=== PATIENT | male | born 1960 | race Caucasian/White ===

== ENCOUNTER 2018-05-15 11:30 | Outpatient (REF) | payer MEDICARE, MEDICAID, SELFPAY ==
[2018-05-15 20:13] LABS: ALT 18 U/L (12-78); Anion Gap 9.1 mmol/L (3-11); BUN 9 mg/dL (7-18); CO2 28.9 mmol/L (21.0-32.0); CREATININE 1.02 mg/dL (0.70-1.30); Calcium 9.4 mg/dL (8.5-10.1); Chloride 98 mmol/L (98-107); Glucose 104 mg/dL (70-100); LDL CHOLESTEROL 180 mg/dL (<100); Potassium 4.5 mmol/L (3.5-5.1); Sodium 136 mmol/L (136-145)
[2018-05-15 20:40] LABS: ESR 19 MM/HR (1-20)
[2018-05-19 10:37] LABS: Cyclic Citrullinated Peptide <2.5 U/mL (<5.0)
[2018-05-19 11:00] LABS: Rheumatoid Factor <8 IU/mL (<12.5)
[2018-05-19 11:35] LABS: Hepatitis C Ab w Rflx HCV PCR Negative (NEGAT)
== END 2018-05-15 11:50 ==
LOC: NCHCN 11:30
PROVIDERS: PCP Internal Medicine; Visit Provider Internal Medicine
DX: M18.11 Unilateral primary osteoarthritis of first carpometacarpal joint, right hand (principal); I10 Essential (primary) hypertension; S22.009D Unspecified fracture of unspecified thoracic vertebra, subsequent encounter for fracture with routine healing; Z13.6 Encounter for screening for cardiovascular disorders; Z11.59 Encounter for screening for other viral diseases
CPT/HCPCS: 80048; 83721; 85652; 86200; 86803; 84460; 86140; 86431

== ENCOUNTER 2018-12-03 18:01 | Outpatient (REF) | payer MEDICARE, MEDICAID, SELFPAY ==
[2018-12-03 21:23] LABS: C-Reactive Protein 0.17 mg/dL (0.0-0.3)
[2018-12-03 22:00] LABS: ESR 13 MM/HR (1-20)
[2018-12-08 10:59] LABS: Buprenorphine Negative; Norbuprenorphine Negative
== END 2018-12-03 18:21 ==
LOC: NCHCN 18:01
PROVIDERS: PCP Internal Medicine; Visit Provider Internal Medicine
DX: F11.20 Opioid dependence, uncomplicated (principal); M71.30 Other bursal cyst, unspecified site; M18.11 Unilateral primary osteoarthritis of first carpometacarpal joint, right hand; S22.009D Unspecified fracture of unspecified thoracic vertebra, subsequent encounter for fracture with routine healing
CPT/HCPCS: 80307; 85652; 86140

== ENCOUNTER 2019-05-11 16:49 | Outpatient (REF) | payer MEDICARE, MEDICAID, SELFPAY ==
[2019-05-19 12:41] LABS: Buprenorphine Negative; Norbuprenorphine Negative
== END 2019-05-11 17:09 ==
LOC: NCHCN 16:49
PROVIDERS: PCP Internal Medicine; Visit Provider Internal Medicine
DX: G89.29 Other chronic pain (principal); Z79.899 Other long term (current) drug therapy
CPT/HCPCS: 80307

== ENCOUNTER 2019-12-14 18:31 | Outpatient (REF) | payer MEDICARE, MEDICAID, SELFPAY ==
[2019-12-14 19:48] LABS: HGB 15.2 g/dL (13.5-17.5); Mean Corp. HGB Concentration 33.8 g/dL (32.0-36.0); Mean Corpuscular Hemoglobin 31.5 pg (27.0-33.0); Mean Corpuscular Volume 93.2 fL (80-95); Mean Platelet Volume 11.6 fL (8.0-11.0); Platelet Count 245 x1000/uL (130-400); RBC 4.83 m/cumm (4.50-6.00); RBC Distribution Width 13.4 % (11.8-14.1)
[2019-12-14 20:26] LABS: ESR 15 mm/hr (1-20)
[2019-12-14 20:42] LABS: ALT 20 U/L (16-63); AST 25 U/L (15-37); Albumin 4.1 g/dL (3.4-5.0); Alkaline Phosphatase 103 U/L (46-116); Anion Gap 8.4 mmol/L (3-11); BUN 8 mg/dL (7-18); Bilirubin, Total 0.6 mg/dL (0.2-1.0); CO2 30.6 mmol/L (21.0-32.0); CREATININE 1.03 mg/dL (0.70-1.30); Calcium 9.6 mg/dL (8.5-10.1); Chloride 101 mmol/L (98-107); Glucose 95 mg/dL (74-106); Potassium 3.9 mmol/L (3.5-5.1); Sodium 140 mmol/L (136-145); TSH 1.61 uIU/mL (0.36-3.74); Total Protein 7.3 g/dL (6.4-8.2); Vitamin B12 393 pg/mL (193-986)
[2019-12-16 13:52] LABS: Albumin 59.7 % (55.8-66.1); Total Protein 7.2 g/dL (6.3-8.2)
== END 2019-12-14 18:51 ==
LOC: NCHCN 18:31
PROVIDERS: PCP Internal Medicine; Visit Provider Internal Medicine
DX: G60.9 Hereditary and idiopathic neuropathy, unspecified (principal); F41.8 Other specified anxiety disorders; R29.898 Other symptoms and signs involving the musculoskeletal system
CPT/HCPCS: 80053; 85027; 85652; 82607; 84165; 84443

== ENCOUNTER 2020-06-17 13:14 | Outpatient (REF) | payer MEDICARE, MEDICAID, SELFPAY ==
[2020-06-28 12:14] LABS: Buprenorphine Negative
== END 2020-06-17 13:34 ==
LOC: NCHCN 13:14
PROVIDERS: PCP Internal Medicine; Visit Provider Internal Medicine
DX: M10.9 Gout, unspecified (principal); G60.9 Hereditary and idiopathic neuropathy, unspecified; Z79.899 Other long term (current) drug therapy; Z51.81 Encounter for therapeutic drug level monitoring
CPT/HCPCS: 80307

== ENCOUNTER → 2020-08-22 13:02 | Outpatient (BNVA) | payer MEDICARE, MEDICAID, SELFPAY | PROVIDERS: PCP Internal Medicine; Referring Provider Internal Medicine; Visit Provider Psychiatry & Neurology Neurology | DX: M79.604 Pain in right leg (principal); M79.605 Pain in left leg; R29.898 Other symptoms and signs involving the musculoskeletal system; R26.89 Other abnormalities of gait and mobility | CPT/HCPCS: 95885; 95908; 99205 ==

== ENCOUNTER 2021-05-24 15:20 | Outpatient (REF) | payer MEDICARE, MEDICAID, SELFPAY ==
[2021-05-24 17:31] LABS: Anion Gap 9.3 mmol/L (3-11); BUN 10 mg/dL (7-18); CO2 27.7 mmol/L (21.0-32.0); Calcium 9.1 mg/dL (8.5-10.1); Chloride 101 mmol/L (98-107); Glucose 90 mg/dL (74-106); Potassium 4.7 mmol/L (3.5-5.1); Sodium 138 mmol/L (136-145)
== END 2021-05-24 15:21 | disposition home or self-care (01) ==
LOC: NCHCN 15:20
PROVIDERS: PCP Internal Medicine; Visit Provider Internal Medicine
DX: E87.8 Other disorders of electrolyte and fluid balance, not elsewhere classified (principal); R55 Syncope and collapse; Z79.52 Long term (current) use of systemic steroids
CPT/HCPCS: 80048; 83735

== ENCOUNTER 2021-09-11 16:34 | Outpatient (REF) | payer MEDICARE, MEDICAID, SELFPAY ==
[2021-09-11 20:21] LABS: Magnesium 0.9 mg/dL (1.8-2.4); Vitamin B12 429 pg/mL (193-986)
[2021-09-11 20:54] LABS: C-Reactive Protein < 0.05 mg/dL (0.0-0.3)
[2021-09-11 22:38] LABS: Anion Gap 11.4 mmol/L (3-11); BUN 9 mg/dL (7-18); CO2 28.6 mmol/L (21.0-32.0); CREATININE 0.9 mg/dL (0.70-1.30); Calcium 8.7 mg/dL (8.5-10.1); Chloride 102 mmol/L (98-107); Glucose 72 mg/dL (74-106); Potassium 3.9 mmol/L (3.5-5.1); Sodium 142 mmol/L (136-145)
== END 2021-09-11 16:35 | disposition home or self-care (01) ==
LOC: NCHCN 16:34
PROVIDERS: PCP Internal Medicine; Visit Provider Internal Medicine
DX: R53.83 Other fatigue (principal)
CPT/HCPCS: 80048; 82607; 83735; 84443; 86140

== ENCOUNTER 2022-01-17 13:07 | Outpatient (REF) | payer MEDICARE, MEDICAID, SELFPAY ==
[2022-01-17 20:28] LABS: HCT 36.6 % (40.0-50.0); HGB 11.4 g/dL (13.5-17.5); MCH 26.3 pg (27.0-33.0); MCHC 31.1 % (32.0-36.0); MCV 84 fL (80-95); MPV 12.2 fL (8.0-11.0); Platelet Count 375 10^3/uL (130-400); RBC 4.34 10^6/uL (4.36-5.78); RDW-SD 46.1 fL; WBC 12.25 10^3/uL (4.4-10.8)
[2022-01-17 20:42] LABS: ALT 31 U/L (16-63); AST 37 U/L (15-37); Albumin 2.8 g/dL (3.4-5.0); Alkaline Phosphatase 158 U/L (46-116); Anion Gap 8.6 mmol/L (3-11); BUN 30 mg/dL (7-18); Bilirubin, Total 0.3 mg/dL (0.2-1.0); CO2 32.4 mmol/L (21.0-32.0); CREATININE 1.1 mg/dL (0.70-1.30); Calcium 9.7 mg/dL (8.5-10.1); Chloride 95 mmol/L (98-107); Glucose 83 mg/dL (74-106); Magnesium 1.8 mg/dL (1.8-2.4); Potassium 4.3 mmol/L (3.5-5.1); Sodium 136 mmol/L (136-145); Total Protein 8.8 g/dL (6.4-8.2)
== END 2022-01-17 13:08 | disposition home or self-care (01) ==
LOC: NCHCN 13:07
PROVIDERS: PCP Internal Medicine; Visit Provider Internal Medicine
DX: J18.9 Pneumonia, unspecified organism (principal); E46 Unspecified protein-calorie malnutrition; A41.9 Sepsis, unspecified organism
CPT/HCPCS: 80053; 85027; 83735

== ENCOUNTER → 2022-02-19 08:47 | Outpatient (BNVA) | payer MEDICARE, MEDICAID, SELFPAY | PROVIDERS: PCP Internal Medicine; Referring Provider Internal Medicine; Visit Provider Internal Medicine Cardiovascular Disease | DX: I48.0 Paroxysmal atrial fibrillation (principal); M06.9 Rheumatoid arthritis, unspecified; J18.9 Pneumonia, unspecified organism | CPT/HCPCS: 99203; 99214 ==

== ENCOUNTER 2022-02-28 09:58 | Emergency (ER) | payer MEDICARE, MEDICAID, SELFPAY ==
[2022-02-28] VITALS (10 sets, daily range): BP systolic 124–147; BP diastolic 81–94; PULSE 73–88; RESP 16–18; TEMP 37–37.1; O2SAT 96–98
--- NOTE | 2022-02-28 10:45 | DI.RAD_ITS ---
Exam(s) XR ABDOMEN FLAT PLATE EXAM: XR ABDOMEN FLAT PLATE CLINICAL HISTORY: abd pain with tube feeding. TECHNIQUE: 2D digital imaging was performed. COMPARISON: No exams were available for comparison FINDINGS: Two views There is infiltrate in the right lower lung included in the field of view of this abdominal study. T he visualized left lung bases clear. On this supine view there are air-filled and some distended bowel loops, predominantly small bowel bu t also appears to be some air in what is probably the transverse colon. Vertically orientated catheter device questionable position relative the stomach. IMPRESSION: DATA REPOSITORY: RADIATION DOSE DELIVERED:
[2022-02-28 11:12] LABS: Abs Immature Grans 0.03 10^3/uL (0.0-0.06); Absolute Eosinophil Count 0.07 10^3/uL (0.0-0.7); Absolute Lymphocyte Count 1.95 10^3/uL (1.2-3.4); Absolute Monocyte Count 0.64 10^3/uL (0.1-0.8); Absolute Neutrophil Count 6.85 10^3/uL (1.2-6.7); Eosinophils % 0.7; HCT 43.9 % (40.0-50.0); HGB 13.8 g/dL (13.5-17.5); Immature Grans % 0.3; Lymphocytes % 20.2; MCH 25.7 pg (27.0-33.0); MCHC 31.4 % (32.0-36.0); MCV 82 fL (80-95); Monocytes % 6.6; Neutrophils % 71.2; RBC 5.36 10^6/uL (4.36-5.78); RDW 17.1 % (11.8-14.1); RDW-SD 50.1 fL; WBC 9.64 10^3/uL (4.4-10.8)
[2022-02-28 11:26] LABS: ALT 78 U/L (16-63); AST 77 U/L (15-37); Albumin 3.6 g/dL (3.4-5.0); Alkaline Phosphatase 134 U/L (46-116); Anion Gap 6.6 mmol/L (3-11); BUN 17 mg/dL (7-18); Bilirubin, Total 0.6 mg/dL (0.2-1.0); CO2 28.4 mmol/L (21.0-32.0); CREATININE 1.1 mg/dL (0.70-1.30); Calcium 9.7 mg/dL (8.5-10.1); Chloride 96 mmol/L (98-107); Estimated GFR 74.96 (mL/min/1.73m2); Glucose 95 mg/dL (74-106); Lipase 84 U/L (73-393); Potassium 4.1 mmol/L (3.5-5.1); Sodium 131 mmol/L (136-145); Total Protein 8.8 g/dL (6.4-8.2)
[2022-02-28] MEDS: Normal Saline 500 ML IV (11:50)
[2022-02-28 11:54] LABS: Bilirubin Negative (Negative); Blood Negative (Negative); Clarity Clear (Clear); Glucose Negative (Negative); Ketones Negative (Negative); Leukocyte Esterase Negative (Negative); Nitrite Negative (Negative); Specific Gravity 1.015 (1.005-1.025); Urobilinogen 0.2 EU/dL (Up TO 0.2)
--- NOTE | 2022-02-28 13:27 | ED.GENADUL_ITS ---
Discharge Plan Disposition Patient Disposition: HOME Condition: Stable Discharge Details Clinical Impression: Abdominal pain, Infiltrate of lower lobe of right lung present on imaging study Primary Care Provider: Ken Payan ED Provider: Tam Barajas Home Meds and New Rx's Prescriptions: Continued hydrocodone-acetaminophen 7.5-325 mg tablet 1 tab PO Q8H atorvastatin 20 mg tablet 20 mg PO QHS fluoxetine 40 mg capsule 40 mg PO DAILY amiodarone 400 mg tablet 400 mg PO DAILY furosemide [Lasix] 40 mg tablet 40 mg PO DAILY pantoprazole [Protonix] [address] for susp in packet 40 mg PO DAILY No Action fluoxetine 20 mg capsule 60 mg PO DAILY Discharge Instructions Instructions: Abdominal Pain (ED) Additional Instructions: Your laboratory work-up and diagnostic imaging today was reassuring. Incidentally noted is a infiltrate in your right lower lung. I suspect this is as result of recent pulmonary infection. Please be sure to discuss this with your primary care physician in follow-up. I discussed your recent swallow study with your speech pathologist who recommends advancing to thick liquids and soft mechanical solids as tolerated. Please follow-up with gastroenterology at [facility] for general surgery at [facility] regarding her G-tube. Please contact your primary care physician to arrange follow-up. Return to the ER immediately for any worsening or new concerning symptoms. Referrals: [facility] [Provider Group] Ken Payan [Primary Care Provider] - Discharge Data Discharge Date/Time-TO BE ENTERED AT DEPARTURE: 02/28/22 16:21 Medical Decision Making 1330 --62-year-old male with multiple medical problems, here with abdominal pain after any injection into the G-tube over the past 2 weeks. G-tube is been present for the past 2 months after he was hospitalized for aspiration pneumonia with respiratory failure. Patient does have tenderness in his upper abdomen. No peritoneal findings. Concern for potential G-tube dislodgment versus other acute surgical process. CT currently unavailable. I called and spoke with on-call general surgeon, Dr. Fuller, she recommended injecting Gastroview and obtaining plain film x-ray to confirm appropriate placement of G-tube. -- Of note, patient did have swallow evaluation this week. I called and spoke with Suzy the speech pathologist who performed the study and notes patient performed well in recommends advancing to mechanical soft solids. -- Abdominal x-ray with Gastroview was interpreted by radiology: After 30 cc Gastrografin was injected via the indwelling gastrostomy tube 3 views were obtained including supine, upright, and left side down-right side up decubitus views. These views reveal that the gastrostomy tube is in satisfactory position in the distal body of the stomach with no evidence of extravasation of contrast into the surrounding tissue.? These images also reveal that the stomach is not distended.? There is also no free intraperitoneal air evident. Incidentally noted is significant infiltrate in the right lung base, not associated with an obvious pleural effusion.? The opposite-left lung base is clear. --patient was reassessed and has remained stable. Results discussed with the patient. I advised advancing diet and starting p.o.'s and to follow-up with surgery or GI regarding his G-tube. Lab Data Lab results reviewed: Yes I reviewed the patient's lab results. Labs: Laboratory Tests Range/Units 02/28/22 02/28/22 02/28/22 10:53 10:53 10:53 WBC (4.4-10.8) 10^3/uL 9.64 RBC (4.36-5.78) 10^6/uL 5.36 Hgb (13.5-17.5) g/dL 13.8 Hct (40.0-50.0) % 43.9 MCV (80-95) fL 82 MCH (27.0-33.0) pg 25.7 L MCHC (32.0-36.0) % 31.4 L RDW (11.8-14.1) % 17.1 H Plt Count (130-400) 10^3/uL MPV (8.0-11.0) fL Immature Gran % 0.3 Neutrophils % 71.2 Lymphocytes % 20.2 Monocytes % 6.6 Eosinophils % 0.7 Basophils % 1.0 Nucleated RBC % (0.0-0.3) % 0.0 Absolute Neutrophils (1.2-6.7) 10^3/uL 6.85 H Absolute Lymphocytes (1.2-3.4) 10^3/uL 1.95 Absolute Monocytes (0.1-0.8) 10^3/uL 0.64 Absolute Eosinophils (0.0-0.7) 10^3/uL 0.07 Absolute Basophils (0.0-0.2) 10^3/uL 0.10 Sodium (136-145) mmol/L 131 L Potassium (3.5-5.1) mmol/L 4.1 Chloride (98-107) mmol/L 96 L Carbon Dioxide (21.0-32.0) mmol/L 28.4 Anion Gap (3-11) mmol/L 6.6 BUN (7-18) mg/dL 17 Creatinine (0.70-1.30) mg/dL 1.1 Est GFR (CKD-EPI 2020) (mL/min/1.73m2) 74.96 Glucose (74-106) mg/dL 95 Calcium (8.5-10.1) mg/dL 9.7 Total Bilirubin (0.2-1.0) mg/dL 0.6 AST (15-37) U/L 77 H ALT (16-63) U/L 78 H Alkaline Phosphatase (46-116) U/L 134 H Total Protein (6.4-8.2) g/dL 8.8 H Albumin (3.4-5.0) g/dL 3.6 Lipase Cancelled 84 Urine Color (Yellow) Urine Clarity (Clear) Urine pH (5-8) Ur Specific [place] (1.005-1.025) Urine Protein (Negative) mg/dL Urine Ketones (Negative) mg/dL Urine Blood (Negative) Urine Nitrite (Negative) Urine Bilirubin (Negative) Urine Urobilinogen (Up TO 0.2) EU/dL Ur Leukocyte Esterase (Negative) Urine Glucose (Negative) mg/dL Range/Units 02/28/22 11:22 WBC (4.4-10.8) 10^3/uL RBC (4.36-5.78) 10^6/uL Hgb (13.5-17.5) g/dL Hct (40.0-50.0) % MCV (80-95) fL MCH (27.0-33.0) pg MCHC (32.0-36.0) % RDW (11.8-14.1) % Plt Count (130-400) 10^3/uL MPV (8.0-11.0) fL Immature Gran % Neutrophils % Lymphocytes % Monocytes % Eosinophils % Basophils % Nucleated RBC % (0.0-0.3) % Absolute Neutrophils (1.2-6.7) 10^3/uL Absolute Lymphocytes (1.2-3.4) 10^3/uL Absolute Monocytes (0.1-0.8) 10^3/uL Absolute Eosinophils (0.0-0.7) 10^3/uL Absolute Basophils (0.0-0.2) 10^3/uL Sodium (136-145) mmol/L Potassium (3.5-5.1) mmol/L Chloride (98-107) mmol/L Carbon Dioxide (21.0-32.0) mmol/L Anion Gap (3-11) mmol/L BUN (7-18) mg/dL Creatinine (0.70-1.30) mg/dL Est GFR (CKD-EPI 2020) (mL/min/1.73m2) Glucose (74-106) mg/dL Calcium (8.5-10.1) mg/dL Total Bilirubin (0.2-1.0) mg/dL AST (15-37) U/L ALT (16-63) U/L Alkaline Phosphatase (46-116) U/L Total Protein (6.4-8.2) g/dL Albumin (3.4-5.0) g/dL Lipase Urine Color (Yellow) Yellow Urine Clarity (Clear) Clear Urine pH (5-8) 7.0 Ur Specific [place] (1.005-1.025) 1.015 Urine Protein (Negative) mg/dL Negative Urine Ketones (Negative) mg/dL Negative Urine Blood (Negative) Negative Urine Nitrite (Negative) Negative Urine Bilirubin (Negative) Negative Urine Urobilinogen (Up TO 0.2) EU/dL 0.2 Ur Leukocyte Esterase (Negative) Negative Urine Glucose (Negative) mg/dL Negative HPI General Mode of arrival: ambulatory . Date/Time Provider Initiated Documentation: 02/28/22 10:08 . Limitations to Documentation: no limitations . Information obtained by: patient . HPI Narrative: 62-year-old male with history of gastric ulcer, GERD, intestinal intussusception, aspiration pneumonia status post G-tube placement about 2 months ago, here with chief complaint of abdominal pain. Patient notes pain in his upper abdomen that occurs after administering a liquid through his G-tube. Pain is severe. This has been ongoing for about 2 weeks. Symptoms are persistent. No modifiers. No associated fever. Related Data Home Medications Medication Instructions Recorded Confirmed atorvastatin 20 mg tablet 20 mg PO QHS 12/17/19 02/28/22 fluoxetine 40 mg capsule 40 mg PO DAILY 12/17/19 02/28/22 fluoxetine 20 mg capsule 60 mg PO DAILY 08/22/20 02/19/22 hydrocodone 7.5 mg-acetaminophen 1 tab PO Q8H 08/22/20 02/28/22 325 mg tablet amiodarone 400 mg tablet 400 mg PO DAILY 02/01/22 02/28/22 furosemide 40 mg tablet (Lasix) 40 mg PO DAILY 02/01/22 02/28/22 pantoprazole 40 mg granules 40 mg PO DAILY 02/01/22 02/28/22 delayed-release for susp in packet (Protonix) Allergies Allergy/AdvReac Type Severity Reaction Status Date / Time penicillin V [From Pen-Vee K] Allergy Intermediate Verified 02/28/22 10:08 codeine Allergy Verified 02/28/22 10:08 leflunomide AdvReac Severe Diarrhea Verified 02/28/22 10:08 General Stated Complaint: Abd Prob KEANU: 3 Review of Systems All systems reviewed & are unremarkable except as noted in HPI and below Constitutional Constitutional: Denies fever(s) Gastrointestinal Gastrointestinal: Reports as per HPI Musculoskeletal Comments: Patient notes pain left lateral ribs PFSH All Active Problems (Updated 02/28/22 @ 16:14 by Tam Barajas MD) Abdominal pain (Acute) Infiltrate of lower lobe of right lung present on imaging study (Acute) Pneumonia (Acute) Paroxysmal atrial fibrillation (Acute) Balance disorder (Acute) Leg weakness (Acute) Leg pain (Acute) Medical History Anxiety disorder Anxiety with depression Carpal tunnel syndrome Chronic diarrhea Compression fracture of body of thoracic vertebra Gastric ulcer GERD (gastroesophageal reflux disease) Gout History of depression Hypertension Hypophosphatasia Intestinal intussusception Mixed hyperlipidemia New onset a-fib Osteoarthritis of carpometacarpal (CMC) joint of right thumb Osteoporosis Peripheral neuropathy Rheumatoid arthritis Seronegative arthritis Smoker Solitary lung nodule Steroid dependent for adrenal supression Surgical History H/O hand surgery bilateral for RA deformities S/P abdominal surgery, follow-up exam at [facility]; for intussiception S/P excision of ganglion cyst Family History Brother Heart disease Father Heart disease Social History Smoking/Tobacco Use Status: Current every day Smoking risk assessment performed?: Yes Alcohol Intake: former Drug use: Never Substance use type: does not use Household members: none Number of Children: 0 current occupation: Disabled Pets and animals: Yes Pets and animals: cat(s) and dog(s) What type of physical activity do you participate in: none Seatbelt use: always Do you feel safe at home: Yes Do you feel safe in your relationship?: Yes Exam Const General: cooperative and no acute distress HENMT Mouth: moist mucous membranes Eyes Conjunctivae: normal conjunctivae Sclera: normal sclerae Chest Chest: tenderness rib (Left lower lateral) and No rash Resp Auscultation: clear to auscultation bilaterally, no rales, no rhonchi and no wheezes Cardio Rate: regular rate and not tachycardic Rhythm: regular rhythm GI Palpation: soft, not firm, no guarding, no masses, not rigid and tender in the LUQ and in the RUQ Other: G-tube in place Skin General skin exam: no rashes or lesions noted Neuro General: patient alert, patient awake and tone normal Extrem General: no edema Psych Appearance: grossly normal Mental Status: mental status grossly normal Course Vital Signs Vital signs: Vital Signs Temperature 37.1 C 02/28/22 10:02 Pulse 88 02/28/22 10:02 Respiratory Rate 16 02/28/22 10:02 Blood Pressure 145/94 H 02/28/22 10:02 Pulse Oximetry 98 02/28/22 10:02 Temperature 37.1 C 02/28/22 10:02 Pulse 84 02/28/22 10:46 Respiratory Rate 16 02/28/22 10:02 Respiratory Effort 02/28/22 10:09 Blood Pressure 130/81 02/28/22 10:46 Blood Pressure Mean 94 02/28/22 10:46 Pulse Oximetry 97 02/28/22 11:10 Pain Level 9 02/28/22 10:09 Lab/Test Results Lab/Test Results: Laboratory Tests Range/Units 02/28/22 02/28/22 02/28/22 10:53 10:53 10:53 WBC (4.4-10.8) 10^3/uL 9.64 RBC (4.36-5.78) 10^6/uL 5.36 Hgb (13.5-17.5) g/dL 13.8 Hct (40.0-50.0) % 43.9 MCV (80-95) fL 82 MCH (27.0-33.0) pg 25.7 L MCHC (32.0-36.0) % 31.4 L RDW (11.8-14.1) % 17.1 H Plt Count (130-400) 10^3/uL MPV (8.0-11.0) fL Immature Gran % 0.3 Neutrophils % 71.2 Lymphocytes % 20.2 Monocytes % 6.6 Eosinophils % 0.7 Basophils % 1.0 Nucleated RBC % (0.0-0.3) % 0.0 Absolute Neutrophils (1.2-6.7) 10^3/uL 6.85 H Absolute Lymphocytes (1.2-3.4) 10^3/uL 1.95 Absolute Monocytes (0.1-0.8) 10^3/uL 0.64 Absolute Eosinophils (0.0-0.7) 10^3/uL 0.07 Absolute Basophils (0.0-0.2) 10^3/uL 0.10 Sodium (136-145) mmol/L 131 L Potassium (3.5-5.1) mmol/L 4.1 Chloride (98-107) mmol/L 96 L Carbon Dioxide (21.0-32.0) mmol/L 28.4 Anion Gap (3-11) mmol/L 6.6 BUN (7-18) mg/dL 17 Creatinine (0.70-1.30) mg/dL 1.1 Est GFR (CKD-EPI 2020) (mL/min/1.73m2) 74.96 Glucose (74-106) mg/dL 95 Calcium (8.5-10.1) mg/dL 9.7 Total Bilirubin (0.2-1.0) mg/dL 0.6 AST (15-37) U/L 77 H ALT (16-63) U/L 78 H Alkaline Phosphatase (46-116) U/L 134 H Total Protein (6.4-8.2) g/dL 8.8 H Albumin (3.4-5.0) g/dL 3.6 Lipase Cancelled 84 Urine Color (Yellow) Urine Clarity (Clear) Urine pH (5-8) Ur Specific [place] (1.005-1.025) Urine Protein (Negative) mg/dL Urine Ketones (Negative) mg/dL Urine Blood (Negative) Urine Nitrite (Negative) Urine Bilirubin (Negative) Urine Urobilinogen (Up TO 0.2) EU/dL Ur Leukocyte Esterase (Negative) Urine Glucose (Negative) mg/dL Range/Units 02/28/22 11:22 WBC (4.4-10.8) 10^3/uL RBC (4.36-5.78) 10^6/uL Hgb (13.5-17.5) g/dL Hct (40.0-50.0) % MCV (80-95) fL MCH (27.0-33.0) pg MCHC (32.0-36.0) % RDW (11.8-14.1) % Plt Count (130-400) 10^3/uL MPV (8.0-11.0) fL Immature Gran % Neutrophils % Lymphocytes % Monocytes % Eosinophils % Basophils % Nucleated RBC % (0.0-0.3) % Absolute Neutrophils (1.2-6.7) 10^3/uL Absolute Lymphocytes (1.2-3.4) 10^3/uL Absolute Monocytes (0.1-0.8) 10^3/uL Absolute Eosinophils (0.0-0.7) 10^3/uL Absolute Basophils (0.0-0.2) 10^3/uL Sodium (136-145) mmol/L Potassium (3.5-5.1) mmol/L Chloride (98-107) mmol/L Carbon Dioxide (21.0-32.0) mmol/L Anion Gap (3-11) mmol/L BUN (7-18) mg/dL Creatinine (0.70-1.30) mg/dL Est GFR (CKD-EPI 2020) (mL/min/1.73m2) Glucose (74-106) mg/dL Calcium (8.5-10.1) mg/dL Total Bilirubin (0.2-1.0) mg/dL AST (15-37) U/L ALT (16-63) U/L Alkaline Phosphatase (46-116) U/L Total Protein (6.4-8.2) g/dL Albumin (3.4-5.0) g/dL Lipase Urine Color (Yellow) Yellow Urine Clarity (Clear) Clear Urine pH (5-8) 7.0 Ur Specific [place] (1.005-1.025) 1.015 Urine Protein (Negative) mg/dL Negative Urine Ketones (Negative) mg/dL Negative Urine Blood (Negative) Negative Urine Nitrite (Negative) Negative Urine Bilirubin (Negative) Negative Urine Urobilinogen (Up TO 0.2) EU/dL 0.2 Ur Leukocyte Esterase (Negative) Negative Urine Glucose (Negative) mg/dL Negative
--- NOTE | 2022-02-28 13:30 | DI.RAD_ITS ---
Exam(s) XR ABDOMEN FLAT UPRIGHT EXAM: XR ABDOMEN FLAT UPRIGHT CLINICAL HISTORY: assess gtube. TECHNIQUE: 2D digital imaging was performed. COMPARISON: CR XR ABDOMEN FLAT PLATE from 02/28/2022 FINDINGS: 3 views After 30 cc Gastrografin was injected via the indwelling gastrostomy tube 3 views were obtained inclu ding supine, upright, and left side down-right side up decubitus views. These views reveal that the gastrostomy tube is in satisfactory position in the distal body of the st omach with no evidence of extravasation of contrast into the surrounding tissue. These images also r eveal that the stomach is not distended. There is also no free intraperitoneal air evident. Incidentally noted is significant infiltrate in the right lung base, not associated with an obvious p leural effusion. The opposite-left lung base is clear. IMPRESSION: DATA REPOSITORY: RADIATION DOSE DELIVERED:
[2022-02-28] MEDS: Gastrografin 120 ML BTL PO (14:15)
--- NOTE | 2022-03-04 11:30 | PDOC.ERCMACT ---
- If Service Date Differs Date of service: 03/04/22 Time of Service: 11:30 Care Management Activity Note Tyler is seen in the ED for complications of his G Tube. At the request of ED provider, CM coordinates a referral to [facility] to assist Tyler in obtaining a follow up appointment to discuss the removal of G Tube.
== END 2022-02-28 16:21 | disposition home or self-care (01) ==
PROVIDERS: Emergency Provider Student in an Organized Health Care Education/Training Program; PCP Internal Medicine
DX: R10.9 Unspecified abdominal pain (principal); R91.8 Other nonspecific abnormal finding of lung field; R07.81 Pleurodynia; I10 Essential (primary) hypertension; I48.91 Unspecified atrial fibrillation; F17.200 Nicotine dependence, unspecified, uncomplicated
CPT/HCPCS: 36415; 80053; 83690; 96360; 99284; 74018; 74019; 81003; 85025

== ENCOUNTER → 2022-03-12 10:48 | Outpatient (BNVA) | payer MEDICARE, MEDICAID, SELFPAY | PROVIDERS: PCP Internal Medicine; Referring Provider Internal Medicine; Visit Provider Surgery | DX: R91.8 Other nonspecific abnormal finding of lung field (principal); Z93.1 Gastrostomy status | CPT/HCPCS: 99213 ==

== ENCOUNTER 2022-03-21 18:08 | Outpatient (REF) | payer MEDICARE, MEDICAID, SELFPAY ==
[2022-03-21 20:11] LABS: ESR 32 mm/hr (0-20)
[2022-03-21 20:13] LABS: HCT 47.6 % (40.0-50.0); HGB 15.1 g/dL (13.5-17.5); MCH 26.1 pg (27.0-33.0); MCHC 31.7 % (32.0-36.0); MCV 82 fL (80-95); MPV 11.6 fL (8.0-11.0); Platelet Count 168 10^3/uL (130-400); RBC 5.79 10^6/uL (4.36-5.78); RDW 17.2 % (11.8-14.1); RDW-SD 50.6 fL; WBC 8.31 10^3/uL (4.4-10.8)
[2022-03-21 20:24] LABS: ALT 52 U/L (16-63); AST 45 U/L (15-37); Albumin 3.5 g/dL (3.4-5.0); Alkaline Phosphatase 124 U/L (46-116); Anion Gap 7.2 mmol/L (3-11); BUN 16 mg/dL (7-18); Bilirubin, Total 0.5 mg/dL (0.2-1.0); C-Reactive Protein 0.98 mg/dL (0.0-0.3); CO2 33.8 mmol/L (21.0-32.0); CREATININE 1.3 mg/dL (0.70-1.30); Chloride 98 mmol/L (98-107); Estimated GFR 61.35 (mL/min/1.73m2); Glucose 95 mg/dL (74-106); Potassium 3.9 mmol/L (3.5-5.1); Sodium 139 mmol/L (136-145); Total Protein 8.3 g/dL (6.4-8.2)
== END 2022-03-21 18:09 | disposition home or self-care (01) ==
LOC: NCHCN 18:08
PROVIDERS: PCP Internal Medicine; Visit Provider Internal Medicine
DX: R63.4 Abnormal weight loss (principal); R93.3 Abnormal findings on diagnostic imaging of other parts of digestive tract; I48.91 Unspecified atrial fibrillation
CPT/HCPCS: 80053; 85027; 85652; 86140

== ENCOUNTER → 2022-06-19 09:36 | Outpatient (BNVA) | payer MEDICARE, MEDICAID, SELFPAY | PROVIDERS: PCP Internal Medicine; Referring Provider Internal Medicine; Visit Provider Internal Medicine Cardiovascular Disease | DX: I48.0 Paroxysmal atrial fibrillation (principal); J43.9 Emphysema, unspecified | CPT/HCPCS: 99214 ==

== ENCOUNTER 2022-10-24 17:27 | Outpatient (REF) | payer OTHER, MEDICAID, SELFPAY ==
[2022-10-24 21:13] LABS: HCT 45.9 % (40.0-50.0); HGB 15.4 g/dL (13.5-17.5); MCH 30.3 pg (27.0-33.0); MCHC 33.6 % (32.0-36.0); MCV 90 fL (80-95); MPV 11.3 fL (8.0-11.0); Platelet Count 240 10^3/uL (130-400); RBC 5.08 10^6/uL (4.36-5.78); RDW 12.7 % (11.8-14.1); RDW-SD 42.1 fL; WBC 9.63 10^3/uL (4.4-10.8)
[2022-10-24 21:44] LABS: ALT 13 U/L (16-63); AST 22 U/L (15-37); Albumin 3.7 g/dL (3.4-5.0); Alkaline Phosphatase 152 U/L (46-116); Anion Gap 9.3 mmol/L (3-11); BUN 11 mg/dL (7-18); Bilirubin, Total 0.6 mg/dL (0.2-1.0); CO2 27.7 mmol/L (21.0-32.0); CREATININE 1.1 mg/dL (0.70-1.30); Calcium 9.4 mg/dL (8.5-10.1); Chloride 104 mmol/L (98-107); Estimated GFR 74.96 (mL/min/1.73m2); Glucose 91 mg/dL (74-106); Potassium 4.3 mmol/L (3.5-5.1); Sodium 141 mmol/L (136-145); Total Protein 7.6 g/dL (6.4-8.2)
== END 2022-10-24 17:28 | disposition home or self-care (01) ==
LOC: NCHCN 17:27
PROVIDERS: PCP Internal Medicine; Visit Provider Internal Medicine
DX: R10.9 Unspecified abdominal pain (principal); J42 Unspecified chronic bronchitis; E46 Unspecified protein-calorie malnutrition
CPT/HCPCS: 80053; 85027

== ENCOUNTER → 2023-02-21 09:32 | Outpatient (BNVA) | payer OTHER, MEDICAID, SELFPAY | PROVIDERS: PCP Internal Medicine; Referring Provider Internal Medicine; Visit Provider Internal Medicine Cardiovascular Disease | DX: J44.9 Chronic obstructive pulmonary disease, unspecified (principal); I48.0 Paroxysmal atrial fibrillation | CPT/HCPCS: 99214 ==

== ENCOUNTER 2023-08-14 20:05 | Outpatient (REF) | payer OTHER, MEDICAID, SELFPAY ==
--- OUTSIDE RECORDS SUMMARY | 2023-08-14 20:11 | XMS_ITS | Continuity of Care Document ---
Author Name Unknown Organization [facility] Address [address] [place] [address] Care Team Providers Care Rent And Miscellaneous Remittance Clerk Name Role Phone Primeau Ken HARRIS Primary Care Physician [facility] [id number] Date(s): 06/04/23 - 06/04/[address] [address] Discharge Disposition: Home or Self Care Attending Physician: Ayaz Hobbs MD Admitting Physician: Ayaz Hobbs MD Referring Physician: Ayaz Hobbs MD Allergies, Adverse Reactions, Alerts Substance Reaction Severity Status codeine Itching Unknown Active leflunomide Moderate Active penicillAMINE Unknown Active Assessment and Plan Future Appointments Functional Status 06/04/23 ADLs Independent Recent Travel History No recent travel Other exposure to Infectious Disease Non e Immunizations Given and Recorded Vaccine Date Status Refusal Reason SARS-CoV-2 (COVID-19) mRNA-1273 vaccine 03/02/21 R ecorded SARS-CoV-2 (COVID-19) mRNA-1273 vaccine 10/18/20 R ecorded SARS-CoV-2 (COVID-19) mRNA-1273 vaccine 09/20/20 R ecorded Medications acetaminophen 650 mg oral tablet, extended release 1,300 mg = 2 tab, Oral, every 8 hr, PRN as needed for pain, # 100 tab, 0 Refill(s) Start Date: 04/23/23 Status: Ordered albuterol 2.5 mg/3 mL (0.083%) inhalation solution 2.5 Unknown, nebulization, 0 Refill(s), Take 3 mL by nebulization as needed for Wheezing., 0 Refill(s) Start Date: 04/23/23 Status: Ordered atorvastatin 20 mg oral tablet Oral, 20 Unknown, 0 Refill(s), Take 1 Tablet by mouth daily., 0 Refill(s) Start Date: 04/23/23 Status: Ordered ergocalciferol 1.25 mg (50,000 intl units) oral capsule 0 Refill(s), Take one capsule on Saturday, Saturday and Saturday for 12 weeks then recheck vitamin D level., 0 Refill(s) Start Date: 03/26/23 Status: Ordered famotidine 0 Refill(s) Start Date: 11/22/21 Status: Ordered FLUoxetine 0 Refill(s) Start Date: 11/22/21 Status: Ordered furosemide 40 mg oral tablet 40 Unknown, feeding tube, 0 Refill(s), 1 Tablet by feeding tube route daily., 0 Refill(s) Start Date: 01/05/22 Status: Ordered HYDROcodone-acetaminophen 7.5 mg-325 mg oral tablet 0 Refill(s) Start Date: 11/22/21 Status: Ordered methocarbamol 750 mg oral tablet Oral, TID, 750 Unknown, 0 Refill(s), Take 1 Tablet by mouth 3 times daily as needed for Muscle Spasms., 0 Refill(s) Start Date: 02/25/23 Status: Ordered oxyCODONE 10 mg oral tablet 10 mg = 1 tab, Oral, every 6 hr, PRN as needed for pain, this rx if for acute post op pain for 2 days. he is NOT to take his chronic narcotic with this., # 8 tab, 0 Refill(s), Pharmacy: [id number], 163, cm, 06/04/23 8:01:00 EST, Height, 58, kg, 06/04/23 8:01:00 EST, Weight Dosing Start Date: 06/04/23 Status: Ordered oxyCODONE-acetaminophen 7.5 mg-325 mg oral tablet TAKE ONE TABLET BY MOUTH FOUR TIMES A DAY NEEDED FOR PAIN, MUST 28 DAYS, NO EARLY REFILLS, MAXIMUM DAILY DOSE = 4 TABLETS Start Date: 05/02/23 Status: Ordered ProAir RespiClick 90 mcg/inh inhalation powder 2 Unknown, inhalation, 0 Refill(s), Inhale 2 Puffs as directed as needed., 0 Refill(s) Start Date: 04/23/23 Status: Ordered Trelegy Ellipta 100 mcg-62.5 mcg-25 mcg/inh inhalation powder 1 Unknown, inhalation, 0 Refill(s), Inhale 1 Puff as directed daily., 0 Refill(s) Start Date: 04/23/23 Status: Ordered Trelegy Ellipta 100 mcg-62.5 mcg-25 mcg/inh inhalation powder 1 puffs, Inhale, Daily, at the same time every day, # 60 EA, 0 Refill(s) Start Date: 05/02/23 Status: Ordered Ventolin HFA 90 mcg/inh inhalation aerosol INHALE TWO PUFFS BY MOUTH EVERY 4 HOURS NEEDED FOR FOR SHORTNESS OF BREATH OR WHEEZING Start Date: 05/02/23 Status: Ordered Problem List Condition Confirmation Course Effective Dates Status H ealth Status Informant Arthritis of carpometacarpal (CMC) joint of right thumb Confirmed Active Asthma Confirmed Active Atrial fibrillation Confirmed Active Chronic bronchitis Confirmed Active Compression fracture of thoracic vertebra Confirmed Active COPD - Chronic obstructive pulmonary disease Confirmed Active Depression Confirmed Active Empyema Confirmed Active GERD - Gastro-esophageal reflux disease Confirmed Active High cholesterol Confirmed Active Hypertension Confirmed Active Intestinal intussusception Confirmed Active Peripheral neuropathy Confirmed Active Smoker Confirmed Active Solitary nodule of lung Confirmed Active Procedures Procedure Date Related Diagnosis Body Site Status Arthroplasty, interposition, intercarpal or carpometacarpal joints 1 06/03/23 Completed EGD - esophagogastroduodenoscopy 07/12/21 Completed Colonoscopy and EGD 12/28/20 Compl eted Thumb surgery 08/29/20 Completed Hand surgery 2 11/03/18 Completed Colonoscopy and EGD 10/12/10 Compl eted 1Revision arthroplasty carpal metacarpal, Right Thumb. 2Dr. Bryant in [place] Vital Signs Most recent to oldest [Reference Range]: 1 2 3 Temperature Temporal Artery [36-38 Deg C] 36.0 Deg C (06/04/23 1:51 PM) 35.9 Deg C *LOW* (06/04/23 1:00 PM) 35.8 Deg C *LOW* (06/04/23 12:45 PM) Temperature Temporal Artery (DegF) [97.3-100 Deg F] 96.8 Deg F *LOW* (06/04/23 1:51 PM) 96.62 Deg F *LOW* (12/5/23 1:00 PM) 96.44 Deg F *LOW* (06/04/23 12:45 PM) Peripheral Pulse Rate [60-100 bpm] 79 bpm (06/04/23 1:51 PM) 70 bpm (06/04/23 1:45 PM) 82 bpm (06/04/23 1:30 PM) Heart Rate Monitored [60-100 bpm] 82 bpm (06/04/23 1:51 PM) 70 bpm (06/04/23 1:45 PM) 83 bpm (06/04/23 1:30 PM) Respiratory Rate [12-24 br/min] 21 br/min (06/04/23 1:51 PM) 14 br/min (06/04/23 1:45 PM) 20 br/min (06/04/23 1:30 PM) Blood Pressure [90-140/60-90 mmHg] 102/65mmHg (06/04/23 1:51 PM) 96/60mmHg (06/04/23 1:45 PM) 108/67mmHg (06/04/23 1:30 PM) Mean Arterial Pressure, Cuff [70-110 mmHg] 77 mmHg (06/04/23 1:51 PM) 72 mmHg (06/04/23 1:45 PM) 81 mmHg (06/04/23 1:30 PM) Mean Arterial Pressure Cuff 99 mmHg (06/04/23 8:00 AM) Blood Pressure Location Right arm (06/04/23 8:00 AM) Weight 58 kg (06/04/23 8:00 AM) Weight Dosing 58.000 kg (06/04/23 8:00 AM) Weight Estimated 59.42 kg (05/15/23 10:54 AM) Height 163 cm (06/04/23 8:00 AM) Body Mass Index 21.83 kg/m2 (06/04/23 8:00 AM) Social History Social History Type Response Tobacco Current everyday tob acco user Tobacco Use:. Sex Male Discharge instructions * Isabela Davis: PERFORM Event Display: Discharge Instructions Authored Date: [id number] [place] HOPE :1960 Age:63 years Sex:Male Visit Date:06/04/2023 Primary Care Physician: Ora NUNEZ Ken Ponce MD Hospital Discharge Instructions We would like to thank you for allowing us to assist you with your healthcare needs. The following includes patient education materials and information regarding your injury/illness. 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 Pain Control ?Take your pain relief medication when discomfort first begins. ?Can use stool softener while taking the narcotic to avoid problems with constipation. ?It is okay to start [id number] Naproxen or Ibuprofen??immediately ?? Call your doctor if you: ?Develop a fever over 101 degrees. ?Have increased redness, warmth, discharge, swelling, or hardness around the operative site. ?Circulation changes such as tingling, numbness or your fingers/toes appear blue or white. ?Your pain is not adequately controlled, despite taking your pain medication routinely. ?? On the day of surgery, or while taking narcotic pain medication: No driving, operating power equipment,?? drinking alcohol,?? or taking mood altering drugs? Apply warm, moist compress to IV site if sore or red, for 20 minutes, 4 times a day, for 2-3 days.?? Call your doctor if IV site soreness or redness persists. In the event of any problems after surgery, contact your doctor or the Emergency Room @ . Ortho Office: [phone]?? Discharge Orders Discharge Patient Instructions, Follow discharge instructions handout Scheduled Future Appointments Saturday 2:45 PM EST ?? 2023 10:15 AM EST ?? 2023 11:00 AM EST ?? Medications What How Much When Instructions Next Dose New oxyCODONE (oxyCODONE 10 mg oral tablet) 1 tab Oral (given by mouth) Every 6 hours as needed for as needed for pain this rx if for acute post op pain for 2 days. he is NOT to take his chronic narcotic with this. ?? Pickup at [id number] Unchanged acetaminophen (acetaminophen 650 mg oral tablet, extended release) 2 tab Oral (given by mouth) Every 8 hours as needed for as needed for pain Unchanged albuterol (albuterol 2.5 mg/ 3 mL (0.083%) inhalation solution) 2.5 Unknown, nebulization, 0 Refill(s), Take 3 mL by nebulization as needed for Wheezing. ?? Unchanged albuterol (ProAir RespiClick 90 mcg/ inh inhalation powder) 2 Unknown, inhalation, 0 Refill(s), Inhale 2 Puffs as directed as needed. ?? Unchanged albuterol (Ventolin HFA 90 mcg/ inh inhalation aerosol) INHALE TWO PUFFS BY MOUTH EVERY 4 HOURS NEEDED FOR FOR SHORTNESS OF BREATH OR WHEEZING ?? Unchanged atorvastatin (atorvastatin 20 mg oral tablet) Oral (given by mouth) 20 Unknown, 0 Refill(s), Take 1 Tablet by mouth daily. ?? Unchanged ergocalciferol (ergocalciferol 1.25 mg (50,000 intl units) oral capsule) 0 Refill(s), Take one capsule on Saturday, Saturday and Saturday for 12 weeks then recheck vitamin D level. ?? Unchanged famotidine Unchanged FLUoxetine Unchanged fluticasone/ umeclidinium/ vilanterol (Trelegy Ellipta 100 mcg-62.5 mcg-25 mcg/ inh inhalation powder) 1 Puffs Inhale (breathe in) Every day at the same time every day ?? Unchanged fluticasone/ umeclidinium/ vilanterol (Trelegy Ellipta 100 mcg-62.5 mcg-25 mcg/ inh inhalation powder) 1 Unknown, inhalation, 0 Refill(s), Inhale 1 Puff as directed daily. ?? Unchanged furosemide (furosemide 40 mg oral tablet) 40 Unknown, feeding tube, 0 Refill(s), 1 Tablet by feeding tube route daily. ?? Unchanged HYDROcodone-acetaminophen (HYDROcodone-acetaminophen 7.5 mg-325 mg oral tablet) Unchanged methocarbamol (methocarbamol 750 mg oral tablet) Oral (given by mouth) 3 times a day 750 Unknown, 0 Refill(s), Take 1 Tablet by mouth 3 times daily as needed for Muscle Spasms. ?? Unchanged oxyCODONE-acetaminophen (oxyCODONE-acetaminophen 7.5 mg-325 mg oral tablet) TAKE ONE TABLET BY MOUTH FOUR TIMES A DAY NEEDED FOR PAIN, MUST 28 DAYS, NO EARLY REFILLS, MAXIMUM DAILY DOSE = 4 TABLETS ?? Pharmacy Information [id number]: [address] [place], [place] [id number] [phone] Your Summary Your Care Team Admitting Physician - Annette RODRIGUEZ, Ayaz Narayanan MD Attending Physician - Annette RODRIGUEZ, Ayaz Narayanan MD Primary Care Physician - [facility], Ken Ponce MD Referring Physician - Annette RODRIGUEZ, Ayaz Narayanan MD Patient/Health Economist Signature Patient Name:IND[place] HOPE I have received this information and my questions have been answered. Patient/Health Economist Name: Patient/Health Economist Signature: Relationship to Patient: Witness Name/Signature: Date: Electronically Signed on: 06/04/2023 13:40 ESTSigned by:AMD Procedure note * Larry Copeland MD: PERFORM Event Display: Procedure Note Authored Date: [id number] [place] HOPE :1960 Age:63 years Sex:Male Visit Date:06/04/2023 Primary Care Physician: Ken Ruiz MD Rt infra clavicular block with ultrasound guidance Images After the risk benefits and limitations of the procedure explained the patient excepted these??he was taken in the holding area he was sedated with 4 mg of Versed for monitoring was placed his right chest was sterilely prepped and draped ultrasound was used to visualize the brachial plexus in the in fraclavicular position??skin and deeper tissues were anesthetized with 1% lidocaine. ??A 3 inch 21-gauge regional block needle was advanced with ultrasound guidance to the inferior aspect of the axillary artery??and the needle was in this position 17 cc of??half percent ropivacaine with 4 mg of dexa methasone were injected smoothly and slowly there was no??resistance with the injection there is very??little??in the syringe??there is negative aspiration there is no pain with injection??after??17 cc were injected??the needle was withdrawn to the 7 o'clock position of the??axillary artery and another??7 cc of half percent ropivacaine were injected smoothly and slowly??patient did not experienceany pain with injection the needle was then removed??tract cleared pressure held for a few moments Electronically Signed on 06/04/23 10:03 AM Larry Copeland MD History and physical note * Sweta Castellanos: PERFORM Event Display: History and Physical Authored Date: [id number] [place]OPE :1960 Age:63 years Sex:Male Primary Care Physician: Ken Ruiz MD Visit Date:??04/29/2023 [1] ? Chief Complaint R thumb pain History of Present Illness Known patient have not seen in a few years with see me today for right thumb pain has a history of previous CMC arthroplasty??and notes pain and snapping with thumb circumduction. Review of Systems Constitutional:?No??fevers,?No??chills,?No??sweats Eye:?No??recent visual problems ENT:?No??ear pain,?No??nasal congestion,?No??sore throat Respiratory:?No??shortness of breath,?No??cough Cardiovascular:?No??Chest pain,?No??palpitations,?No??syncope Gastrointestinal:?Nonausea,?No??vomiting,?No??diarrhea Genitourinary:?No??hematuria Koffi/Lymph:?No??bruising tendency,?No??swollen lymph glands Endocrine:?No??excessive thirst,??No??excessive hunger Musculoskeletal:??No??back pain,??No??neck pain,??No??joint pain,??No??muscle pain,??No??decreased range of motion Integumentary:?No??rash,?No??pruritus,?No??abrasions Neurologic: Alert & oriented X 4 Psychiatric:?No??anxiety,?No??depression Physical Exam ?Vitals & Measurements ?HT:??161.29??cm?? WT:??58.97??kg?? BMI:??22.67?? BSA:??1.63?? Well-nourished well-developed acute distress alert and oriented appearing stated age. ??Has normal elbow wrist hand range of motion normal cap refill distally no open wound signs of erythema infection does have some pain with thumb circumduction??and it seems that the EPL tendon??is snapping over the??dorsal radial aspect with circumduction. ??Review of x-rays reveals a little bit of subsidence??of the previous CMC arthroplasty Assessment/Plan 1.??Arthritis of carpometacarpal (CMC) joint of right thumb??M18.11 ?CMC arthroplasty pain. ??Options watchful waiting therapy injection or surgical intervention for tendon graft revision. ??After discussing this he wished to have this operatively repaired??which I felt was reasonable especially given the mechanical symptoms noted so we will set him up for revision CMC arthroplasty and see him again at the time of surgery. ?Ordered: PAT Surgery / Procedure Nursing Review Request., 04/29/23 13:00:00 EDT, Ayaz Hobbs MD, Revision right CMC arthroplasty, Right CMC arthroplasty. Need 60 minutes. Date and time per speech lang path. BMI 23. Anesthesia per choice. Will need iconic's suture anchor and tendon graft from the tendon... ?? Problem List/Past Medical History Ongoing ?Arthritis of carpometacarpal (CMC) joint of right thumb ??Asthma ??High cholesterol Historical ?No qualifying data Medications ??acetaminophen 650 mg oral tablet, extended release, 1300 mg= 2 tab, Oral, every 8 hr, PRN ??albuterol 2.5 mg/3 mL (0.083%) inhalation solution ??atorvastatin 20 mg oral tablet, Oral ??ergocalciferol 1.25 mg (50,000 intl units) oral capsule ??famotidine ??FLUoxetine ??furosemide 40 mg oral tablet ??HYDROcodone-acetaminophen 7.5 mg-325 mg oral tablet ??methocarbamol 750 mg oral tablet, Oral, TID ??ProAir RespiClick 90 mcg/inh inhalation powder ??Trelegy Ellipta 100 mcg-62.5 mcg-25 mcg/inh inhalation powder Allergies codeine??(Itching) penicillAMINE Social History Electronic Cigarette/Vaping ??Electronic Cigarette Use: Never. Other Tobacco ??Current everyday tobacco user Tobacco Use:. [2] [1]??Office Visit Note; Ayaz Hobbs MD 04/29/2023 13:01 EDT [2]??Office Visit Note; Ayaz Hobbs MD 04/29/2023 13:01 EDT Electronically Signed on 05/16/23 04:15 PM Sweta Castellanos Electronically Signed on 05/20/23 08:17 AM Ayaz Hobbs MD * Ayaz Hobbs MD: PERFORM Event Display: History and Physical Authored Date: Patient seen in preoperative hold no change in general still status H&P updated Electronically Signed on 06/04/23 12:48 PM Ayaz Hobbs MD Patient Care team information Care Team Personnel Name: Ken Ruiz MD Position: No Access Member Role: Informed Provider Address: Address: [address] [address]- [place] Care Team Related Persons Name: CATHLEEN FORD
--- OUTSIDE RECORDS SUMMARY | 2023-08-14 20:11 | XMS_ITS | Continuity of Care Document ---
Author Name Unknown Organization [facility] Address [address] [place] [address] Care Team Providers Care Commodity Trader Name Role Phone Primeau Ken HARRIS Primary Care Physician [facility] Date(s): 07/31/22 - 07/31/[address] [address] Discharge Disposition: Home or Self Care Attending Physician: Kimberly Mercado Admitting Physician: Kimberly Mercado Referring Physician: Kimberly Mercado Allergies, Adverse Reactions, Alerts Substance Reaction Severity Status codeine Itching Unknown Active penicillAMINE Unknown Active Immunizations Given and Recorded Vaccine Date Status Refusal Reason SARS-CoV-2 (COVID-19) mRNA-1273 vaccine 03/02/21 R ecorded SARS-CoV-2 (COVID-19) mRNA-1273 vaccine 10/18/20 R ecorded SARS-CoV-2 (COVID-19) mRNA-1273 vaccine 09/20/20 R ecorded Medications aMILoride 0 Refill(s) Start Date: 11/22/21 Status: Ordered atorvastatin 0 Refill(s) Start Date: 11/22/21 Status: Ordered CeleBREX 0 Refill(s) Start Date: 11/22/21 Status: Ordered famotidine 0 Refill(s) Start Date: 11/22/21 Status: Ordered FLUoxetine 0 Refill(s) Start Date: 11/22/21 Status: Ordered Humira 0 Refill(s) Start Date: 11/22/21 Status: Ordered HYDROcodone-acetaminophen 7.5 mg-325 mg oral tablet 0 Refill(s) Start Date: 11/22/21 Status: Ordered hydroxychloroquine 0 Refill(s) Start Date: 11/22/21 Status: Ordered Social History Social History Type Response Tobacco Current everyday tob acco user Tobacco Use:. Sex Male Patient Care team information Personnel Name: Ken Ruiz MD Address: Address: [address]
--- OUTSIDE RECORDS SUMMARY | 2023-08-14 20:11 | XMS_ITS | Continuity of Care Document ---
Author Name Unknown Organization [facility] Address [address] [place] [address] Care Team Providers Care Family Practice Physician Name Role Phone [facility] Primary Care Physician [facility] Date(s): 08/23/22 - 08/23/[address] [address] Discharge Disposition: Home or Self Care Attending Physician: Carrol Rao MD Admitting Physician: Carrol Rao MD Referring Physician: Carrol Rao MD Allergies, Adverse Reactions, Alerts Substance Reaction [...] Use:. Sex Male Patient Care team information Care Team Personnel Name: Ken uRiz MD Position: No Access Member Role: Primary Care Physician Address: Address: [address] Care Team Related Persons Name: CATHLEEN FORD Address: Home
--- OUTSIDE RECORDS SUMMARY | 2023-08-14 20:11 | XMS_ITS | Continuity of Care Document ---
Author Name Unknown Organization [facility] Address [address] [place] [address] Care Team Providers Care Research Laboratory Technician Name Role Phone Primeau Ken HARRIS Primary Care Physician Encounter [facility] Date(s): 03/21/23 - 03/21/[address] [address] Discharge Disposition: Home or Self Care Attending [...] 0 Refill(s) Start Date: 11/22/21 Status: Ordered Results Laboratory List Name Date Basic Metabolic Panel 03/21/23 FSH [facility] 03/21/23 Lactate Dehydrogenase 03/21/23 PTH Intact [facility] 03/21/23 Testosterone, Total and Free [facility] 03/21/23 Vitamin D, 25-OH Total [facility] 03/21/23 Most recent to oldest [Reference Range]: 1 BUN [7-18 mg/dL] 10 mg/dL (03/21/23 11:38 AM) Glucose Level [74-106 mg/dL] 94 mg/dL (03/21/23 11:38 AM) Potassium Level [3.5-5.1 mmol/L] 3.8 mmo l/L (03/21/23 11:38 AM) Sodium Level [136-145 mmol/L] 137 mmol/L (03/21/23 11:38 AM) Calcium Level [8.5-10.1 mg/dL] 9.3 mg/dL (03/21/23 11:38 AM) LDH [85-227 unit/L] 185 unit/L (03/21/23 11:38 AM) CO2 [21-32 mmol/L] 28 mmol/L (03/21/23 11:38 AM) eGFR Non-AA [>=60] 79 (03/21/23 11:38 AM) eGFR AA [>=60] 79 (03/21/23 11:38 AM) Chloride Level [98-107 mmol/L] 101 mmol/ L (03/21/23 11:38 AM) Creatinine Level [0.70-1.30 mg/dL] 1.05 mg/dL (03/21/23 11:38 AM) FSH [facility] [1.4-18.1 mIntlUnit/mL] 6.1 mInt lUnit/mL 1 *NA* (03/21/23 11:38 AM) PTH Intact [facility] [19-88 pg/mL] 57 pg/mL 2 *NA* (03/21/23 11:38 AM) Testosterone [facility] [229-902 ng/dL] 479 ng/ dL 3 *NA* (03/21/23 11:38 AM) Sex Hormone Bnd Glob [facility] [17.3-71.5 nmol /L] 49.2 nmol/L 4 *NA* (03/21/23 11:38 AM) Free Testosterone [facility] [3.3-11.6 ng/dL] 7 .7 ng/dL 5 *NA* (03/21/23 11:38 AM) Vitamin D, 25-OH, Total [facility] [30-100 ng/m L] 12 ng/mL 6 *LOW* (03/21/23 11:38 AM) 1Result Comment: Test [place] [id number] 2Result Comment: Test performed [place] [id number] 3Result Comment: The results of this assay can be falsley elevated due to the consumption of Biotin. 4Result Comment: The results of this assay can be falsely lowered due to the consumption of Biotin. 5Result Comment: This test is not recommended in patients with plasma protein abnormalities. Test [place] [id number] 6Result Comment: Vitamin D 25,OH Interpretive Ranges: Deficiency: <10.0 ng/mL Insufficiency: 10.0 - 30.0 ng/mL Sufficiency: 30.0 - 100.0 ng/mL Toxicity: >100.0 ng/mL Test performed [place] [id number] Social History Social History Type Response Tobacco Current everyday tob acco user Tobacco Use:. Sex Male Patient Care team information Care Team Personnel Name: Ken Ruiz MD Position: No Access Member Role: Informed Provider Address: Address: [place] [address]- Care Team Related Persons Name: CATHLEEN FORD
--- OUTSIDE RECORDS SUMMARY | 2023-08-14 20:11 | XMS_ITS | Continuity of Care Document ---
Author Name Unknown Organization [facility] Address [address] [place] [address] Care Team Providers Care Corporate Meeting Planner Name Role Phone Primeau Ken HARRIS Primary Care Physician Encounter [facility] Date(s): 04/11/23 - 04/11/[address] [address] Discharge Disposition: Home or Self Care Attending [...] Status: Ordered Results Laboratory List Name Date Calcium Level 24 Hour Urine 04/11/23 Creatinine Level 24 Hour Urine 04/11/23 Most recent to oldest [Reference Range]: 1 TV Calcium 900 mL *NA* (04/11/23 12:03 PM) U24 Creatinine [600-2500 mg/24hr] 576 mg /24hr *LOW* (04/11/23 12:03 PM) TV Creatinine 900 mL *NA* (04/11/23 12:03 PM) U[facility] Calcium [100-300 mg/24hr] 71 mg/24hr *LOW* (04/11/23 12:03 PM) Social History Social History Type Response Tobacco Current everyday tob acco user Tobacco Use:. Sex Male Patient Care team information Care Team Personnel Name: Ora Ken HARRIS MD Position: No Access Member Role: Informed Provider Address: Address: [address] Care Team Related Persons Name: CATHLEEN FORD
--- OUTSIDE RECORDS SUMMARY | 2023-08-14 20:11 | XMS_ITS | Continuity of Care Document ---
Author Name Unknown Organization [facility] Address [address] [place] [address] Care Team Providers Care Camp Program Director Name Role Phone Primeau [facility] Primary [facility] Physician [facility] - 08/23/[address] [address] Discharge Disposition: Home or Self Care Attending Physician: Carrol Rao MD Admitting Physician: Carrol Rao MD Referring Physician: Carrol Rao MD Allergies, Adverse Reactions, Alerts Substance Reaction Severity Status codeine Itching Unknown Active penicillAMINE Unknown Active Assessment and Plan Diagnostic Tests Pending * Mitochondrial Abs (M2), S [place] 08/23/22 * Protein Electrophoresis, S (SPEP) UV 08/23/22 * PTH Intact UV 08/23/22 * Celiac Disease Comp [place] 08/23/22 Immunizations Given and Recorded Vaccine Date Status [...] Status: Ordered Results Laboratory List Name Date CBC w/ Diff 08/23/22 Comprehensive Metabolic Panel 08/23/22 Ferritin 08/23/22 Iron Level 08/23/22 TSH w/ Rflx to Free T4 08/23/22 Automated Diff 08/23/22 Most recent to oldest [Reference Range]: 1 WBC [5.0-10.0 x10^3/mcL] 8.3 x10^3/mcL (08/23/22 10:59 AM) RBC [4.6-6.0 x10^6/mcL] 5.0 x10^6/mcL (08/23/22 10:59 AM) Neutro Auto [40.0-75.0 %] 55.7 % (08/23/22 10:59 AM) Lymph Auto [20.0-50.0 %] 33.0 % (08/23/22 10:59 AM) Harper Auto [2.0-15.0 %] 7.7 % (08/23/22 10:59 AM) Basophil Auto [0.0-1.0 %] 1.0 % (08/23/22 10:59 AM) BUN [7-18 mg/dL] 16 mg/dL (08/23/22 10:59 AM) Glucose Level [74-106 mg/dL] 79 mg/dL (08/23/22 10:59 AM) Potassium Level [3.5-5.1 mmol/L] 5.4 mmo l/L *HI* (08/23/22 10:59 AM) MCV [80.0-96.0] 95.4 (08/23/22 10:59 AM) AST [15-37 unit/L] 20 unit/L (08/23/22 10:59 AM) ALT [16-63 unit/L] 17 unit/L (08/23/22 10:59 AM) MCHC [31.0-35.0 g/dL] 32.4 g/dL (08/23/22 10:59 AM) Sodium Level [136-145 mmol/L] 142 mmol/L (08/23/22 10:59 AM) Hct [41.0-51.0 %] 47.9 % (08/23/22 10:59 AM) Calcium Level [8.5-10.1 mg/dL] 9.5 mg/dL (08/23/22 10:59 AM) Albumin Level [3.4-5.0 g/dL] 3.6 g/dL (08/23/22 10:59 AM) Protein Total [6.4-8.2 g/dL] 7.6 g/dL (08/23/22 10:59 AM) MCH [26.0-32.0 pg] 30.9 pg (08/23/22 10:59 AM) Neutro Absolute 4.6 x10^3/mcL *NA* (08/23/22 10:59 AM) Bilirubin Total [0.2-1.0 mg/dL] 0.4 mg/d L (08/23/22 10:59 AM) Hgb [14.0-18.0 g/dL] 15.5 g/dL (08/23/22 10:59 AM) Alk Phos [46-146 unit/L] 134 unit/L (08/23/22 10:59 AM) Ferritin Level [26-388 ng/mL] 91 ng/mL (08/23/22 10:59 AM) Platelets [130-450 x10^3/mcL] 203 x10^3/ mcL (08/23/22 10:59 AM) CO2 [21-32 mmol/L] 30 mmol/L (08/23/22 10:59 AM) TSH [0.358-3.740 mcIntlUnit/mL] 1.831 mc IntlUnit/mL (08/23/22 10:59 AM) Iron [65-175 mcg/dL] 89 mcg/dL (08/23/22 10:59 AM) eGFR Non-AA [>=60] 80 (08/23/22 10:59 AM) eGFR AA [>=60] 80 (08/23/22 10:59 AM) Chloride Level [98-107 mmol/L] 105 mmol/ L (08/23/22 10:59 AM) RDW-CV [11.5-17.0 %] 12.5 % (08/23/22 10:59 AM) Imm Gran Auto [0.0-0.9 %] 0.4 % (08/23/22 10:59 AM) Creatinine Level [0.70-1.30 mg/dL] 1.04 mg/dL (08/23/22 10:59 AM) Eos, Auto [1.0-6.0 %] 2.2 % (08/23/22 10:59 AM) Social History Social History Type Response Tobacco Current everyday tob acco user Tobacco Use:. Sex Male Patient Care team information Care Team Personnel Name: Ken Ruiz MD Position: No Access Member Role: Primary Care Physician Address: Address: [id number] [place] [address] Care Team Related Persons Name: CATHLEEN FORD Address: Home
--- OUTSIDE RECORDS SUMMARY | 2023-08-14 20:11 | XMS_ITS | Continuity of Care Document ---
Author Name Unknown Organization [facility] Address [address] [place] [address] Care Team Providers Care Billiard Table Assembler Name Role Phone Ken Ruiz Primary Care Physician [facility] Date(s): 04/19/22 - 04/19/[address] [address] Discharge Disposition: Home or Self Care Attending Physician: Ken Ruiz MD Admitting Physician: Ken Ruiz MD Referring Physician: Ken Ruiz MD Allergies, Adverse Reactions, Alerts Substance Reaction [...] Personnel Name: Ken Ruiz MD Address: Address: [address]
--- OUTSIDE RECORDS SUMMARY | 2023-08-14 20:11 | XMS_ITS | Continuity of Care Document ---
Author Name Unknown Organization [facility] Address [address] [place] [address] Care Team Providers Care Wind Commissioning Technician Name Role Phone [facility] Primary [facility] Phys[facility] Date(s): 03/07/23 - 03/07/[address] [address] Encounter Diagnosis Cat bite of hand(Discharge Diagnosis) - 03/07/23 Bitten by cat, initial encounter(Discharge Diagnosis) - 03/07/23 Cellulitis of arm(Discharge Diagnosis) - 03/07/23 Discharge Disposition: Home or Self Care Attending Physician: Bar Magaña MD Admitting Physician: Bar Magaña MD Allergies, Adverse Reactions, Alerts Substance Reaction Severity Status codeine Itching Unknown Active penicillAMINE Unknown Active Assessment and Plan Future Appointments Diagnostic Tests Pending * Blood Culture 03/07/23 * Blood Culture 03/07/23 Functional Status 03/07/23 Other exposure to Infectious Disease Non e [...] 0 Refill(s) Start Date: 11/22/21 Status: Ordered metroNIDAZOLE 500 mg oral tablet 500 mg = 1 tab, Oral, TID, X 10 days, # 30 tab, 0 Refill(s), 03/17/23 5:55:00 PM CDT, Pharmacy: [id number], 163, cm, 03/07/23 17:14:00 EDT, Height/Length Dosing, 59.42, kg, 03/07/23 17:14:00EDT, Weight Dosing Start Date: 03/07/23 Stop Date: 03/17/23 Status: Ordered Results Laboratory List Name Date C-Reactive Protein High Sensitivity CBC w/ Diff 03/07/23 Comprehensive Metabolic Panel 03/07/23 Sedimentation Rate (ESR) 03/07/23 Automated Diff 03/07/23 Most recent to oldest [Reference Range]: 1 WBC [5.0-10.0 x10^3/mcL] 12.3 x10^3/mcL *HI* (03/07/23 5:08 PM) RBC [4.6-6.0 x10^6/mcL] 4.9 x10^6/mcL (03/07/23 5:08 PM) Neutro Auto [40.0-75.0 %] 66.4 % (03/07/23 5:08 PM) Lymph Auto [20.0-50.0 %] 24.4 % (03/07/23 5:08 PM) [place] Auto [2.0-15.0 %] 7.0 % (03/07/23 5:08 PM) Basophil Auto [0.0-1.0 %] 0.7 % (03/07/23 5:08 PM) BUN [7-18 mg/dL] 12 mg/dL (03/07/23 5:08 PM) Glucose Level [74-106 mg/dL] 76 mg/dL (03/07/23 5:08 PM) Potassium Level [3.5-5.1 mmol/L] 4.0 mmo l/L (03/07/23 5:08 PM) MCV [80.0-96.0 fL] 91.1 fL (03/07/23 5:08 PM) AST [15-37 unit/L] 24 unit/L (03/07/23 5:08 PM) ALT [16-63 unit/L] 15 unit/L *LOW* (03/07/23:08 PM) MCHC [31.0-35.0 g/dL] 33.1 g/dL (03/07/23:08 PM) Sodium Level [136-145 mmol/L] 136 mmol/L (03/07/23:08 PM) Hct [41.0-51.0 %] 45.0 % (03/07/23:08 PM) Calcium Level [8.5-10.1 mg/dL] 9.1 mg/dL (03/07/23:08 PM) Albumin Level [3.4-5.0 g/dL] 3.4 g/dL (03/07/23 5:08 PM) Protein Total [6.4-8.2 g/dL] 7.4 g/dL (03/07/23:08 PM) MCH [26.0-32.0 pg] 30.2 pg (03/07/23 5:08 PM) Neutro Absolute 8.2 x10^3/mcL *NA* (03/07/23 5:08 PM) Bilirubin Total [0.2-1.0 mg/dL] 0.6 mg/d L (03/07/23 5:08 PM) Hgb [14.0-18.0 g/dL] 14.9 g/dL (03/07/23 5:08 PM) Alk Phos [46-146 unit/L] 144 unit/L (03/07/23 5:08 PM) Platelets [130-450 x10^3/mcL] 194 x10^3/ mcL (03/07/23 5:08 PM) CO2 [21-32 mmol/L] 29 mmol/L (03/07/23 5:08 PM) eGFR Non-AA [>=60] 83 (03/07/23 5:08 PM) eGFR AA [>=60] 83 (03/07/23 5:08 PM) Chloride Level [98-107 mmol/L] 100 mmol/ L (03/07/23 5:08 PM) RDW-CV [11.5-14.5 %] 13.2 % (03/07/23 5:08 PM) Imm Gran Auto [0.0-0.9 %] 0.6 % (03/07/23 5:08 PM) CRP High Sens [0.00-3.00 mg/L] 14.34 mg/ L 1 *HI* (03/07/23 5:08 PM) Slide Review Not Indicated (03/07/23 5:08 PM) Creatinine Level [0.70-1.30 mg/dL] 1.01 mg/dL (03/07/23 5:08 PM) Eos, Auto [1.0-6.0 %] 0.9 % *LOW* (03/07/23 5:08 PM) ESR, Westergren [0-20 mm/hr] 21 mm/hr *HI* (03/07/23 5:08 PM) 1Interpretive Data: Risk Level Age/Sex Range Units Less Risk All <1.0 mg/L Average Risk All 1.0 - 3.0 mg/L High Risk All >3.0 mg/L *Indeterminate All >10.0 mg/L *May be an indication of inflammation or infection. Vital Signs Most recent to oldest [Reference Range]: 1 Temperature Temporal Artery [36-38 Deg C ] 37.5 Deg C (03/07/23 4:05 PM) Peripheral Pulse Rate [60-100 bpm] 87 bp m (03/07/23 4:05 PM) Respiratory Rate [12-24 br/min] 18 br/mi n (03/07/23 4:05 PM) Blood Pressure [90-140/60-90 mmHg] 121/9 4mmHg (03/07/23 4:05 PM) Weight Dosing 59.42 kg (03/07/23 5:14 PM) Weight Estimated 59.42 kg (03/07/23 4:05 PM) Height/Length Dosing 163.000 cm (03/07/23 5:14 PM) Height/Length Estimated 163.000 cm (03/07/23 4:05 PM) Social History Social History Type Response Tobacco Current everyday tob acco user Tobacco Use:. Sex Male Hospital Discharge Instructions Follow Up Care 03/07/2023 16:05:08 With:Ken Ruiz MD Address: [address] [phone] When:2 to 4 days Comments:For wound recheck Emergency department Discharge instructions * Bar Magaña MD: PERFORM Event Display: ED Discharge Information Authored Date: [id number] IND[place] HOPE :1960 Age:63 years Sex:Male Visit Date:03/07/2023 Primary Care Physician: Ken Ruiz MD Discharge Instructions We would like to thank you for allowing us to assist you with your healthcare needs. The following includes patient education materials and information regarding your injury/illness. Diagnosis from Today's Visit Cat bite of hand Cellulitis of arm Bitten by cat, initial encounter Discharge Vitals Temperature??(Temporal Artery) 99.5 ??F (37.5 ??C) Heart Rate??(Peripheral) 87 Respiratory Rate?? 18 Blood Pressure?? 121/94?? Height?? 64.17 in (163.000 cm) Weight??(Estimated) 131.02 lb (59.42 kg) Allergies codeine??(Itching) penicillAMINE What to Do Next Instructions from Your Care Team Thank you for coming to the emergency department today, has been a pleasure to take care of you. ??Follow-up tomorrow in the infusion center for the dose of ceftriaxone and take the metronidazole/Flagyl by mouth as directed.?? Please follow-up with Dr. Wen in the next 2 to 3 days/as soon as you are able for a recheck. ??You likely can??change the IV ceftriaxone over to an oral medication once you are improving.?? Return to the emergency department if you have any new or concerning symptoms including any worsening or uncontrolled??pain, fever, redness that is continuing to spread despite theantibiotics, or if you have any other symptoms or concerning. You Need to Schedule the Following Appointments Follow Up with??Ken Ruiz MD When:??Within 2 to 4 days Why: For wound recheck Where: [facility] [address] [place] [phone] You were treated today on an emergency basis; it may be serra to contact your primary care provider to notify them of your visit today. You may have been referred to your regular doctor or a specialist, please follow up as instructed. If your condition worsens or you can't get in to see the doctor, contact the Emergency Department. Medications What How Much When Why Instructions Next Dose New metroNIDAZOLE (metroNIDAZOLE 500 mg oral tablet) 1 tab Oral (given by mouth) 3 times a day Cat bite of hand Cellulitis of arm Duration: 10 Days Pickup at [facility] Unchanged adalimumab (Humira) Unchanged aMILoride Unchanged atorvastatin Unchanged celecoxib (CeleBREX) Unchanged famotidine Unchanged FLUoxetine Unchanged HYDROcodone-acetaminophen (HYDROcodone-acetaminophen 7.5 mg-325 mg oral tablet) Unchanged hydroxychloroquine Pharmacy Information [facility]: [address], [place] [phone] Tests Performed Medications and Immunizations Administered Given cefTRIAXone, IV Piggyback metroNIDAZOLE, 500 mg, Oral Lab Test Name Test Result Date/Time WBC 12.3 x10^3/mcL 03/07/2023 17:08 EDT RBC 4.9 x10^6/mcL 03/07/2023 17:08 EDT Hgb 14.9 g/dL 03/07/2023 17:08 EDT Hct 45.0 % 03/07/2023 17:08 EDT MCV 91.1 fL 03/07/2023 17:08 EDT MCH 30.2 pg 03/07/2023 17:08 EDT MCHC 33.1 g/dL 03/07/2023 17:08 EDT RDW-CV 13.2 % 03/07/2023 17:08 EDT Platelets 194 x10^3/mcL 03/07/2023 17:08 EDT Neutro Auto 66.4 % 03/07/2023 17:08 EDT Lymph Auto 24.4 % 03/07/2023 17:08 EDT [place] Auto 7.0 % 03/07/2023 17:08 EDT Eos, Auto 0.9 % 03/07/2023 17:08 EDT Basophil Auto 0.7 % 03/07/2023 17:08 EDT Imm Gran Auto 0.6 % 03/07/2023 17:08 EDT Neutro Absolute 8.2 x10^3/mcL 03/07/2023 17:08 EDT Slide Review Not Indicated 03/07/2023 17:08 EDT ESR, Westergren 21 mm/hr 03/07/2023 17:08 EDT Sodium Level 136 mmol/L 03/07/2023 17:08 EDT Potassium Level 4.0 mmol/L 03/07/2023 17:08 EDT Chloride Level 100 mmol/L 03/07/2023 17:08 EDT CO2 29 mmol/L 03/07/2023 17:08 EDT Alk Phos 144 unit/L 03/07/2023 17:08 EDT AST 24 unit/L 03/07/2023 17:08 EDT ALT 15 unit/L 03/07/2023 17:08 EDT BUN 12 mg/dL 03/07/2023 17:08 EDT Glucose Level 76 mg/dL 03/07/2023 17:08 EDT Creatinine Level 1.01 mg/dL 03/07/2023 17:08 EDT eGFR AA 83 03/07/2023 17:08 EDT eGFR Non-AA 83 03/07/2023 17:08 EDT Calcium Level 9.1 mg/dL 03/07/2023 17:08 EDT Protein Total 7.4 g/dL 03/07/2023 17:08 EDT Albumin Level 3.4 g/dL 03/07/2023 17:08 EDT Bilirubin Total 0.6 mg/dL 03/07/2023 17:08 EDT CRP High Sens 14.34 mg/L 03/07/2023 17:08 EDT Patient/Fabrication And Assembly Supervisor Signature Patient Name:INDIANA HOPE Nakul I have received this information and my questions have been answered. Patient/Fabrication And Assembly Supervisor Name: Patient/Fabrication And Assembly Supervisor Signature: Relationship to Patient: Witness Name/Signature: Date: Electronically Signed on: 03/07/2023 18:55 EDTSigned by:EMORY Emergency department Note * Marguerite Wallace A: PERFORM Event Display: ED Notes Authored Date: [id number] Patient Care team information Care Team Personnel Name: Ken Ruiz MD Position: No Access Member Role: Informed Provider Address: Address: [address] [address]- [place] Name: Grace Tang Position: Nurse Member Role: ED Nurse Name: Bar Magaña MD Position: Physician Member Role: Admitting Physician Address: Address: [address] [place] [address] [address] [place] [address] [place] Care Team Related Persons Name: CATHLEEN FORD Address: Home
--- OUTSIDE RECORDS SUMMARY | 2023-08-14 20:11 | XMS_ITS | Continuity of Care Document ---
Author Name Unknown Organization [facility] Address [address] [place] [address] Care Team Providers Care Director Cardiovascular Name Role Phone Ken Ruiz Primary Care Physician Encounter [facility] Date(s): 10/15/22 - 10/15/[address] [address] Discharge Disposition: Home or Self Care Attending [...] Member Role: Primary Care Physician Address: Address: [address] Care Team Related Persons Name: CATHLEEN FORD Address: Home
--- OUTSIDE RECORDS SUMMARY | 2023-08-14 20:12 | XMS_ITS | Continuity of Care Document ---
Author Name Unknown Organization [facility] Address [address] [place] [address] Care Team Providers Care Production Lead Name Role Phone Primeau [facility], Ken Ponce Primary Care Physician [facility] - 02/07/[address] [address] Discharge Disposition: Home or Self Care Attending Physician: Licha Mora MD Admitting Physician: Licha Mora MD Referring Physician: Licha Mora MD Allergies, Adverse Reactions, Alerts Substance Reaction [...] 0 Refill(s) Start Date: 11/22/21 Status: Ordered Vital Signs Most recent to oldest [Reference Range]: 1 Heart Rate Monitored [60-100 bpm] 90 bpm (02/07/23 2:41 PM) Social History Social History Type Response Tobacco Current everyday tob acco user Tobacco Use:. Sex Male Patient Care team information Care Team Personnel Name: Ken Ruiz MD Position: No Access Member Role: Primary Care Physician Address: Address: [id number] [place] [address] Care Team Related Persons Name: CATHLEEN FORD Address: Home
--- OUTSIDE RECORDS SUMMARY | 2023-08-14 20:12 | XMS_ITS | Continuity of Care Document ---
Author Name Unknown Organization [facility] Address [address] [place] [address] Care Team Providers Care Copy Coordinator Name Role Phone Prime[facility] Primary Care Physician [facility] Date(s): 06/07/22 - 07/15/[address] [address] Discharge Disposition: Home or Self Care Attending Physician: Kimberly Rivera Admitting Physician: Kimberly Rivera Referring Physician: Kimberly Rivera Allergies, Adverse Reactions, Alerts Substance Reaction Severity [...] Personnel Name: Ken Ruiz MD Address: Address: [address]
--- OUTSIDE RECORDS SUMMARY | 2023-08-14 20:12 | XMS_ITS | Continuity of Care Document ---
Author Name Unknown Organization [facility] Address [address] [place] [address] Care Team Providers Care Shuttle Fixer Name Role Phone Ken Ruiz Primary Care Physician [facility] Date[facility] 10/08/22 - 10/08/[address] [address] Discharge Disposition: Home or Self Care Attending [...] tob acco user Tobacco Use:. Sex Male Pulmonary function study * Jeanne Castellano D: PERFORM Event Display: Pulmonary Function Studies Authored Date: [id number] Patient Care team information Care Team Personnel Name: Ken Ruiz MD Position: No Access Member Role: Primary Care Physician Address: Address: [address] Care Team Related Persons Name: CATHLEEN FORD Address: Home
--- OUTSIDE RECORDS SUMMARY | 2023-08-14 20:12 | XMS_ITS | Continuity of Care Document ---
Author Name Unknown Organization [facility] Address [address] [place] [address] Care Team Providers Care Manager Quality Compliance Name Role Phone [facility] [facility] - 08/10/[address] [address] Discharge Disposition: Home or Self Care Attending [...] Personnel Name: Ken Ruiz MD Address: Address: [address]
--- OUTSIDE RECORDS SUMMARY | 2023-08-14 20:12 | XMS_ITS | Continuity of Care Document ---
Author Name Unknown Organization [facility] Address [address] [place] [address] Care Team Providers Care Senior Ios Developer Name Role Phone Ken Ruiz Primary Care Physician Encounter [facility] Date(s): 02/28/23 - 02/28/[address] [address] Discharge Disposition: Home or Self Care Attending [...] Results Laboratory List Name Date C-Reactive Protein 02/28/23 CBC w/o Diff 02/28/23 Most recent to oldest [Reference Range]: 1 WBC [5.0-10.0 x10^3/mcL] 8.9 x10^3/mcL (02/28/23 1:27 PM) RBC [4.6-6.0 x10^6/mcL] 5.1 x10^6/mcL (02/28/23 1:27 PM) MCV [80.0-96.0 fL] 91.7 fL (02/28/23 1:27 PM) CRP [<=10.0 mg/L] 5.5 mg/L (02/28/23 1:27 PM) MCHC [31.0-35.0 g/dL] 33.2 g/dL (02/28/23 1:27 PM) Hct [41.0-51.0 %] 46.4 % (02/28/23 1:27 PM) MCH [26.0-32.0 pg] 30.4 pg (02/28/23 1:27 PM) Hgb [14.0-18.0 g/dL] 15.4 g/dL (02/28/23 1:27 PM) Platelets [130-450 x10^3/mcL] 204 x10^3/ mcL (02/28/23 1:27 PM) RDW-CV [11.5-14.5 %] 13.2 % (02/28/23 1:27 PM) Social History Social History Type Response Tobacco Current everyday tob acco user Tobacco Use:. Sex Male Patient Care team information Care Team Personnel Name: Ken Ruiz MD Position: No Access Member Role: Informed Provider Address: Address: [address] Care Team Related Persons Name: CATHLEEN FORD Address: Home
[2023-08-14 20:39] LABS: ALT 13 U/L (16-63); AST 24 U/L (15-37); Albumin 3.5 g/dL (3.4-5.0); Alkaline Phosphatase 118 U/L (46-116); Anion Gap 9.3 mmol/L (3-11); BUN 9 mg/dL (7-18); Bilirubin, Total 0.6 mg/dL (0.2-1.0); CO2 28.7 mmol/L (21.0-32.0); CREATININE 1.2 mg/dL (0.70-1.30); Calcium 9.5 mg/dL (8.5-10.1); Calculated LDL 179 mg/dL (<100); Chloride 103 mmol/L (98-107); Cholesterol 258 mg/dL (<200); Estimated GFR 67.11 (mL/min/1.73m2); Glucose 103 mg/dL (74-106); HDL Cholesterol 54 mg/dL (40-60); Potassium 5.3 mmol/L (3.5-5.1); Sodium 141 mmol/L (136-145); TSH 2.77 uIU/mL (0.36-3.74); Total Protein 7.6 g/dL (6.4-8.2); Triglyceride 127 mg/dL (<150)
[2023-08-14 21:28] LABS: Creatine Kinase 158 U/L (39-308)
== END 2023-08-14 20:06 | disposition home or self-care (01) ==
LOC: NCHCN 20:05
PROVIDERS: PCP Internal Medicine; Visit Provider Internal Medicine
DX: E78.5 Hyperlipidemia, unspecified (principal); M62.81 Muscle weakness (generalized)
CPT/HCPCS: 80053; 80061; 82550; 84443

== ENCOUNTER → 2023-11-12 10:47 | Outpatient (BNVA) | payer OTHER, MEDICAID, SELFPAY | PROVIDERS: PCP Internal Medicine; Referring Provider Internal Medicine; Visit Provider Student in an Organized Health Care Education/Training Program | DX: J44.9 Chronic obstructive pulmonary disease, unspecified (principal); R91.8 Other nonspecific abnormal finding of lung field | CPT/HCPCS: 99214 ==

== ENCOUNTER 2023-12-17 17:41 | Outpatient (REF) | payer OTHER, SELFPAY ==
[2023-12-17 20:07] LABS: Anion Gap 9.7 mmol/L (3-11); BUN 10 mg/dL (7-18); CO2 28.3 mmol/L (21.0-32.0); CREATININE 1.2 mg/dL (0.70-1.30); Chloride 102 mmol/L (98-107); Estimated GFR 67.11 (mL/min/1.73m2); Glucose 113 mg/dL (74-106); Magnesium 1.7 mg/dL (1.8-2.4); Potassium 4.4 mmol/L (3.5-5.1); Sodium 140 mmol/L (136-145); Vitamin D 25 Total 26.8 ng/mL (30-100)
== END 2023-12-17 17:42 | disposition home or self-care (01) ==
LOC: NCHCN 17:41
PROVIDERS: Visit Provider Internal Medicine
DX: M81.8 Other osteoporosis without current pathological fracture (principal); R79.89 Other specified abnormal findings of blood chemistry; T50.905A Adverse effect of unspecified drugs, medicaments and biological substances, initial encounter
CPT/HCPCS: 80048; 82306; 83735

== ENCOUNTER → 2024-05-12 10:54 | Outpatient (BNVA) | payer OTHER, MEDICAID, SELFPAY | PROVIDERS: PCP Internal Medicine; Referring Provider Internal Medicine; Visit Provider Physician Assistant Surgical | DX: J44.1 Chronic obstructive pulmonary disease with (acute) exacerbation (principal); R91.8 Other nonspecific abnormal finding of lung field; F17.210 Nicotine dependence, cigarettes, uncomplicated | CPT/HCPCS: 94640; 99214; J7620 ==

== ENCOUNTER 2024-10-12 21:10 | Outpatient (REF) | payer MEDICARE, SELFPAY ==
[2024-10-12 19:42] LABS: HCT 44.8 % (40.0-50.0); HGB 15.2 g/dL (13.5-17.5); MCH 30.7 pg (27.0-33.0); MCHC 33.9 % (32.0-36.0); MCV 91 fL (80-95); MPV 11.2 fL (8.0-11.0); Platelet Count 239 10^3/uL (130-400); RBC 4.95 10^6/uL (4.36-5.78); RDW 13.8 % (11.8-14.1); RDW-SD 46.3 fL; WBC 9.99 10^3/uL (4.4-10.8)
[2024-10-12 20:13] LABS: ALT 15 U/L (16-63); AST 24 U/L (15-37); Albumin 3.6 g/dL (3.4-5.0); Alkaline Phosphatase 88 U/L (46-116); Anion Gap 8.1 mmol/L (3-11); BUN 10 mg/dL (7-18); Bilirubin, Total 0.6 mg/dL (0.2-1.0); CO2 27.9 mmol/L (21.0-32.0); CREATININE 1.1 mg/dL (0.70-1.30); Calcium 9.6 mg/dL (8.5-10.1); Chloride 102 mmol/L (98-107); Estimated GFR 74.04 (mL/min/1.73m2); Glucose 94 mg/dL (74-106); Magnesium 1.6 mg/dL (1.8-2.4); Potassium 4.5 mmol/L (3.5-5.1); Sodium 138 mmol/L (136-145); Total Protein 7.3 g/dL (6.4-8.2)
== END 2024-10-12 21:11 | disposition home or self-care (01) ==
LOC: NCHCN 21:10
PROVIDERS: Visit Provider Internal Medicine
DX: I10 Essential (primary) hypertension (principal); I48.0 Paroxysmal atrial fibrillation
CPT/HCPCS: 80053; 85027; 83735

== ENCOUNTER → 2024-11-09 14:58 | Outpatient (BNVA) | payer MEDICARE, SELFPAY | PROVIDERS: PCP Internal Medicine; Referring Provider Internal Medicine; Visit Provider Physician Assistant Surgical | DX: J44.9 Chronic obstructive pulmonary disease, unspecified (principal); R91.8 Other nonspecific abnormal finding of lung field; F17.210 Nicotine dependence, cigarettes, uncomplicated; J44.1 Chronic obstructive pulmonary disease with (acute) exacerbation; Z98.890 Other specified postprocedural states | CPT/HCPCS: 99214 ==

== ENCOUNTER 2025-01-11 18:11 | Outpatient (REF) | payer MEDICARE, SELFPAY ==
[2025-01-11 19:57] LABS: Anion Gap 9.4 mmol/L (3-11); BUN 12 mg/dL (7-18); CO2 27.6 mmol/L (21.0-32.0); Calcium 9.1 mg/dL (8.5-10.1); Chloride 100 mmol/L (98-107); Estimated GFR 66.70 (mL/min/1.73m2); Glucose 97 mg/dL (74-106); Magnesium 1.8 mg/dL (1.8-2.4); Potassium 5.5 mmol/L (3.5-5.1); Sodium 137 mmol/L (136-145)
== END 2025-01-11 18:12 | disposition home or self-care (01) ==
LOC: NCHCN 18:11
PROVIDERS: PCP Internal Medicine; Visit Provider Internal Medicine
DX: Z13.820 Encounter for screening for osteoporosis (principal)
CPT/HCPCS: 80048; 83735

== ENCOUNTER → 2025-01-14 12:35 | Outpatient (BNVA) | payer MEDICARE, SELFPAY | PROVIDERS: PCP Internal Medicine; Referring Provider Internal Medicine; Visit Provider Physician Assistant Surgical | DX: R91.8 Other nonspecific abnormal finding of lung field (principal); J44.1 Chronic obstructive pulmonary disease with (acute) exacerbation; F17.210 Nicotine dependence, cigarettes, uncomplicated; J96.91 Respiratory failure, unspecified with hypoxia | CPT/HCPCS: 94618; 99214 ==

== ENCOUNTER → 2025-06-10 07:57 | Outpatient (BNVA) | payer MEDICARE, SELFPAY | PROVIDERS: PCP Internal Medicine; Referring Provider Internal Medicine; Visit Provider Physician Assistant Surgical | DX: J44.1 Chronic obstructive pulmonary disease with (acute) exacerbation (principal); R91.8 Other nonspecific abnormal finding of lung field; F17.210 Nicotine dependence, cigarettes, uncomplicated | CPT/HCPCS: 99214; 94640 ==